=== PATIENT | male | born 1970 | race Caucasian/White ===

== ENCOUNTER 2023-09-21 20:46 | Emergency (ER) | payer OTHER, SELFPAY ==
[2023-09-21] MEDS ORDERED: Ibuprofen 200 MG TAB ONE (21:23)
== END 2023-09-21 22:00 | disposition home or self-care (01) ==
LOC: CSHERS 20:46
DX: K08.89 Other specified disorders of teeth and supporting structures (principal); Z87.891 Personal history of nicotine dependence
CPT/HCPCS: 99282